=== PATIENT | male | born 1950 | race Caucasian/White ===

== ENCOUNTER 2018-11-12 14:49 | Emergency (ER) | payer OTHER ==
--- NOTE | 2018-11-12 16:41 | US ---
Left lower extremity deep venous ultrasound: Duplex and color flow imaging was obtained of the left common femoral, proximal greater saphenous, superficial femoral, popliteal, posterior tibial and peroneal veins. Findings: Small amount of thrombus is identified within the proximal superficial femoral vein which is nonoccluding. No other findings of deep venous thrombosis seen. Mild subcutaneous edema is noted within the left lower extremity. 3.0 x 1.0 x 4.2 cm popliteal cyst is seen. Impression: 1. Small amount of non-occluding thrombus within the proximal superficial femoral vein. 2. No other findings of deep venous thrombosis are seen within left lower extremity. 3. Mild subcutaneous edema and popliteal cyst. Diagnostic code #5
[2018-11-12] MEDS ORDERED: Rivaroxaban 10 MG Tab PO ONE (17:11)
--- NOTE | 2018-11-12 17:18 | EDM.PDOC ---
ED HPI GENERAL MEDICAL PROBLEM - General Chief Complaint: Lower Extremity Injury/Pain Stated Complaint: RT SWOLLEN FOOT POST KNEE SURGERY Time Seen by Provider: 11/12/18 15:13 Source of Information: Reports: Patient History Limitations: Reports: No Limitations - History of Present Illness INITIAL COMMENTS - FREE TEXT/NARRATIVE: The patient presents with edema to the left leg. The patient had a total knee replacement at the [facility] in [place] on 11/07/18. Everything went good and he was doing fine. He was putting some weight on his leg. He has very little pain. A couple hours before arrival he developed edema to the left leg. He had no injury. He has no history of DVT or PE. He has no chest pain or shortness of breath. He has no fever, chills or cough. Onset: Sudden Duration: Hour(s): (2) Location: Reports: Lower Extremity, Left Severity: Moderate Improves with: Reports: None Worsens with: Reports: None Associated Symptoms: Reports: No Other Symptoms - Related Data Allergies Allergy/AdvReac Type Severity Reaction Status Date / Time No Known Allergies Allergy Verified 11/12/18 15:16 Past Medical History HEENT History: Reports: Hard of Hearing Other HEENT History: hearing aids Cardiovascular History: Reports: High Cholesterol, Hypertension Genitourinary History: Reports: Other (See Below) Other Genitourinary History: urinary frequency at night - Past Surgical History GI Surgical History: Reports: Hernia, Inguinal Other GI Surgeries/Procedures: mesh placed Musculoskeletal Surgical History: Reports: Knee Replacement Other Musculoskeletal Surgeries/Procedures:: left knee Social & Family History - Tobacco Use Smoking Status *Q: Never Smoker - Caffeine Use Caffeine Use: Reports: Coffee - Recreational Drug Use Recreational Drug Use: No Review of Systems - Review of Systems Review Of Systems: See Below Constitutional: Reports: No Symptoms Eyes: Reports: No Symptoms Ears: Reports: No Symptoms Nose: Reports: No Symptoms Mouth/Throat: Reports: No Symptoms Respiratory: Reports: No Symptoms Cardiovascular: Reports: No Symptoms GI/Abdominal: Reports: No Symptoms Genitourinary: Reports: No Symptoms Musculoskeletal: Reports: Other (Edema left leg) ED EXAM, GENERAL - Physical Exam Exam: See Below Exam Limited By: No Limitations General Appearance: Alert, No Apparent Distress Ears: Normal External Exam Nose: Normal Inspection Head: Atraumatic, Normocephalic Neck: Normal Inspection Respiratory/Chest: No Respiratory Distress, Lungs Clear, Normal Breath Sounds Cardiovascular: Regular Rate, Rhythm, No Edema, No Murmur GI/Abdominal: Soft, Non-Tender, No Organomegaly, No Mass Back Exam: Normal Inspection Extremities: Other (Moderate edema to the left leg. Ecchymosis to the back of the knee and to the lateral malleolus. Good sensation and pulsed distally. No pain upon palpation. Bandage is in place with no drainage noted.) Course - Vital Signs Last Recorded V/S: Last Vital Signs Temp 98.9 F 11/12/18 15:11 Pulse 103 H 11/12/18 15:11 Resp 18 11/12/18 15:11 BP 145/92 H 11/12/18 15:11 Pulse Ox 95 11/12/18 15:11 - Orders/Labs/Meds Labs: Laboratory Tests 11/12/18 11/12/18 Range/Units 15:42 15:42 WBC 8.58 (4.23-9.07) K/mm3 RBC 3.80 L (4.63-6.08) M/mm3 Hgb 11.5 L (13.7-17.5) gm/L Hct 34.4 L (40.1-51.0) % MCV 90.5 (79.0-92.2) fl MCH 30.3 (25.7-32.2) pg MCHC 33.4 (32.2-35.5) g/dl RDW Std Deviation 42.0 (35.1-43.9) fL Plt Count 304 (163-337) K/mm3 MPV 10.3 (9.4-12.3) fl Neut % (Auto) 59.8 (34.0-67.9) % Lymph % (Auto) 18.1 L (21.8-53.1) % Sutton % (Auto) 16.3 H (5.3-12.2) % Eos % (Auto) 4.9 (0.8-7.0) Baso % (Auto) 0.7 (0.1-1.2) % Neut # (Auto) 5.13 (1.78-5.38) K/mm3 Lymph # (Auto) 1.55 (1.32-3.57) K/mm3 Sutton # (Auto) 1.40 H (0.30-0.82) K/mm3 Eos # (Auto) 0.42 (0.04-0.54) K/mm3 Baso # (Auto) 0.06 (0.01-0.08) K/mm3 Manual Slide Review Normal smear Sodium 141 (136-145) mEq/L Potassium 4.3 (3.5-5.1) mEq/L Chloride 105 (98-107) mEq/L Carbon Dioxide 26 (21-32) mEq/L Anion Gap 14.3 (5-15) BUN 21 H (7-18) mg/dL Creatinine 0.9 (0.7-1.3) mg/dL Est Cr Clr Drug Dosing 73.89 mL/min Estimated GFR (MDRD) > 60 (>60) mL/min BUN/Creatinine Ratio 23.3 H (14-18) Glucose 108 (80-115) mg/dL Calcium 8.6 (8.5-10.1) mg/dL Total Bilirubin 0.5 (0.2-1.0) mg/dL AST 26 (15-37) U/L ALT 35 (16-63) U/L Alkaline Phosphatase 63 (46-116) U/L Total Protein 6.9 (6.4-8.2) g/dl Albumin 3.1 L (3.4-5.0) g/dl Globulin 3.8 gm/dL Albumin/Globulin Ratio 0.8 L (1-2) Meds: Medications Discontinued Medications Generic Name Dose Route Start Last Admin Trade Name Freq PRN Reason Stop Dose Admin Rivaroxaban 15 mg 11/12/18 17:11 Xarelto PO 11/12/18 17:12 ONETIME ONE - Re-Assessments/Exams Free Text/Narrative Re-Assessment/Exam: 11/12/18 17:16 His labs look good but his US shows small amount of non-occluding thrombus within the proximal superficial femoral vein. No other findings of deep venous thrombosis are seen within left lower extremity. I will start him on some xarelto. Departure - Departure Time of Disposition: 17:20 Disposition: Home, Self-Care 01 Condition: Good Clinical Impression: DVT (deep venous thrombosis) Qualifiers: DVT location: lower extremity Affected thrombotic vein of extremity: femoral Chronicity: acute Laterality: left Qualified Code(s): I82.412 - Acute embolism and thrombosis of left femoral vein - Discharge Information *PRESCRIPTION DRUG MONITORING PROGRAM REVIEWED*: No *COPY OF PRESCRIPTION DRUG MONITORING REPORT IN PATIENT LORRAINE: No Referrals: Moraima Wade MD [Primary Care Provider] - 1 Week Additional Instructions: Take the xarelto 15mg by mouth 2 times per day for 3 weeks and then daily after that. [facility]. I gave you enough for 3 weeks. Keep wearing the compression stockings and elevate your leg a couple times per day. Please return if you are worse such as chest pain or shortness of breath.
== END 2018-11-12 17:30 | disposition home or self-care (01) ==
LOC: JD.ED 14:49
DX: I82.412 Acute embolism and thrombosis of left femoral vein (principal); I10 Essential (primary) hypertension
CPT/HCPCS: 36415; 80053; 85025; 93971; 99284; A9270; 99283